=== PATIENT | female | born 1975 | race Caucasian/White ===

== ENCOUNTER 2017-04-16 21:03 | Inpatient (IN) | payer OTHER, BC ==
[~2017-04-16] VITALS: Ht 167.6 cm; Wt 55.9 kg
[2017-04-16] MEDS ORDERED: TOPROL XL100 MG PO (21:14)
[2017-04-16] MEDS ORDERED: PRILOSEC OTC20 MG PO (21:16)
[2017-04-16] MEDS ORDERED: HYDROXYZINE HYD50 M1 PO (21:16)
[2017-04-16] MEDS ORDERED: HYDROCHLOROTHIA1 T14 PO (21:17)
[2017-04-16 21:48] LABS: HEMATOCRIT 49.9 % (37.0-47.0); HEMOGLOBIN 16.6 g/dL (12.5-16.0); RED BLOOD COUNT 4.61 M/mm3 (4.10-5.30); WHITE BLOOD COUNT 15.5 K/mm3 (4.8-10.8)
[2017-04-16 21:49] LABS: MEAN CELL VOLUME 108 fl (78-100); MEAN CORPUSCULAR HGB CONC 33 g/dL (33-37); MEAN PLATELET VOLUME 10.1 fl (7.4-10.4); PLATELET COUNT 237 K/mm3 (130-400); RED CELL DISTRIBUTION WIDTH 15.7 % (11.5-14.5)
[2017-04-16 22:00] LABS: ALBUMIN 5.4 g/dL (3.5-5.0); BUN/CREATININE RATIO 7.4 (6.0-26.0); CALCIUM 9.7 mg/dL (8.4-10.2); POTASSIUM 4.4 mmol/L (3.6-5.0); TOTAL BILIRUBIN 3.8 mg/dL (0.2-1.3)
[2017-04-16 22:09] LABS: MEAN CORPUSCULAR HEMOGLOBIN 36 pg (27-31)
[2017-04-16 22:10] LABS: LYMPHOCYTE 6 % (20-51); MONOCYTE 6 % (3-10); NEUTROPHILS 88 % (42-75)
[2017-04-16 22:48] LABS: LIPASE 3515 U/L (23-300)
[2017-04-17 00:36] VITALS: BP 138/103
[2017-04-17 00:37] VITALS: BP 138/103
[2017-04-17 02:50] VITALS: BP 142/105
[2017-04-17 04:56] VITALS: BP 118/93
[2017-04-17 05:21] LABS: HEMATOCRIT 42.2 % (37.0-47.0); HEMOGLOBIN 14.9 g/dL (12.5-16.0); MEAN CELL VOLUME 106 fl (78-100); MEAN CORPUSCULAR HGB CONC 35 g/dL (33-37); MEAN PLATELET VOLUME 10.5 fl (7.4-10.4); PLATELET COUNT 174 K/mm3 (130-400); RED BLOOD COUNT 3.99 M/mm3 (4.10-5.30); RED CELL DISTRIBUTION WIDTH 15.5 % (11.5-14.5); WHITE BLOOD COUNT 8.6 K/mm3 (4.8-10.8)
[2017-04-17 05:33] LABS: BUN/CREATININE RATIO 15.6 (6.0-26.0); CALCIUM 8.5 mg/dL (8.4-10.2); POTASSIUM 4.8 mmol/L (3.6-5.0); TOTAL BILIRUBIN 4.9 mg/dL (0.2-1.3); TOTAL PROTEIN 6.7 g/dL (6.3-8.2)
[2017-04-17 05:48] LABS: MEAN CORPUSCULAR HEMOGLOBIN 37 pg (27-31)
[2017-04-17 05:50] LABS: BAND 0 % (0-10); LYMPHOCYTE 14 % (20-51); MONOCYTE 2 % (3-10); NEUTROPHILS 84 % (42-75)
[2017-04-17 05:55] LABS: LIPASE 5309 U/L (23-300)
[2017-04-17 05:56] LABS: PROTHROMBIN TIME 10.2 SECONDS (9.0-12.0)
[2017-04-17 06:24] LABS: URINE APPEARANCE CLEAR; URINE COLOR AMBER
[2017-04-17 06:25] LABS: URINE BILIRUBIN 1+ (NEGATIVE); URINE BLOOD TRACE (NEGATIVE); URINE GLUCOSE NEGATIVE (NEGATIVE); URINE KETONE 3+ (NEGATIVE); URINE LEUKOCYTE ESTERASE NEGATIVE (NEGATIVE); URINE NITRATE NEGATIVE (NEGATIVE); URINE PROTEIN(semi-quant) TRACE mg/dL (NEGATIVE); URINE UROBILINOGEN NORMAL (NORMAL); URINE WBC 0-1 /hpf (0-3)
[2017-04-17 09:05] VITALS: BP 140/94
== END 2017-04-17 09:44 | disposition short-term general hospital (02) | DRG 439 ==
LOC: ED 21:03 → MED/SURG 23:51
PROVIDERS: ADMIT Nurse Practitioner Primary Care
DX: K85.20 Alcohol induced acute pancreatitis without necrosis or infection (principal); F10.239 Alcohol dependence with withdrawal, unspecified; E87.2 Acidosis; E86.0 Dehydration; E83.42 Hypomagnesemia
CPT/HCPCS: J0692; J1630; J1885; J2060; J2270; J2405; J2550; J3475; J3490; J7030; Q9967

== ENCOUNTER → 2017-05-15 | Outpatient (CLI) | payer OTHER, BC ==
[2017-04-17 09:05] VITALS: BP 140/94
[~2017-05-15] MED LIST: HYDROCHLOROTHIA1 T14 PO; HYDROXYZINE HYD50 M1 PO; PRILOSEC OTC20 MG PO; TOPROL XL100 MG PO
[2017-05-15 15:19] LABS: HEMATOCRIT 37.2 % (37.0-47.0); HEMOGLOBIN 12.1 g/dL (12.5-16.0); MEAN CELL VOLUME 100 fl (78-100); MEAN CORPUSCULAR HEMOGLOBIN 33 pg (27-31); MEAN CORPUSCULAR HGB CONC 33 g/dL (33-37); MEAN PLATELET VOLUME 10.3 fl (7.4-10.4); RED BLOOD COUNT 3.71 M/mm3 (4.10-5.30); RED CELL DISTRIBUTION WIDTH 14.1 % (11.5-14.5); WHITE BLOOD COUNT 8.9 K/mm3 (4.8-10.8)
[2017-05-15 15:40] LABS: ALBUMIN 3.3 g/dL (3.5-5.0); BUN/CREATININE RATIO 11.5 (6.0-26.0); CALCIUM 8.5 mg/dL (8.4-10.2); POTASSIUM 3.4 mmol/L (3.6-5.0); TOTAL BILIRUBIN 0.4 mg/dL (0.2-1.3); TOTAL PROTEIN 6.5 g/dL (6.3-8.2)
[2017-05-15 16:25] LABS: PLATELET COUNT 551 K/mm3 (130-400)
[2017-05-15 20:32] LABS: LYMPH# 2.6 (1.50-4.00); MONO # 0.8 (0.20-0.80); NEU # 4.9 (1.40-6.50)
[2017-05-15 20:34] LABS: EOS # 0.7 (0.04-0.40)
== END ==
LOC: LAB 14:56
PROVIDERS: Nurse Practitioner Family
DX: Z87.19 Personal history of other diseases of the digestive system (principal); K76.0 Fatty (change of) liver, not elsewhere classified; F10.20 Alcohol dependence, uncomplicated; I10 Essential (primary) hypertension

== ENCOUNTER → 2017-06-01 | Outpatient (CLI) | payer OTHER, BC ==
[2017-06-01 14:12] LABS: BUN/CREATININE RATIO 10.6 (6.0-26.0); CALCIUM 8.4 mg/dL (8.4-10.2); POTASSIUM 3.5 mmol/L (3.6-5.0)
== END ==
LOC: LAB 13:45
PROVIDERS: Nurse Practitioner Family
DX: E87.6 Hypokalemia (principal)

== ENCOUNTER → 2017-06-05 | Outpatient (CLI) | payer OTHER, BC | LOC: LAB 16:15 | DX: R73.9 Hyperglycemia, unspecified (principal) ==

== ENCOUNTER → 2019-08-29 | Outpatient (CLI) | payer BC ==
[2019-08-29 09:45] LABS: POTASSIUM 3.9 mmol/L (3.5-5.1)
[2019-08-29 09:46] LABS: CALCIUM 8.8 mg/dL (8.3-10.5)
[2019-08-29 09:47] LABS: TOTAL PROTEIN 6.7 g/dL (6.4-8.3)
[2019-08-29 09:49] LABS: TOTAL BILIRUBIN 0.6 mg/dL (0.2-1.2)
[2019-08-29 09:50] LABS: BASO # 0.1 (0.02-0.10); EOS % 4.4 % (1.0-5.0); HEMOGLOBIN 14.3 g/dL (12.5-16.0); MEAN CELL VOLUME 88 fl (78-100); MEAN CORPUSCULAR HEMOGLOBIN 30 pg (27-31); MEAN CORPUSCULAR HGB CONC 34 g/dL (33-37); MONO # 1.2 (0.20-0.80); NEU # 8.6 (1.40-6.50); PLATELET COUNT 423 K/mm3 (130-400); RED BLOOD COUNT 4.78 M/mm3 (4.10-5.30); WHITE BLOOD COUNT 15.4 K/mm3 (4.8-10.8)
[2019-08-29 10:20] LABS: EOS # 0.7 (0.04-0.40); LYMPH# 4.8 (1.50-4.00)
== END ==
LOC: LAB 09:18
PROVIDERS: Physician Assistant
DX: Z00.00 Encounter for general adult medical examination without abnormal findings (principal); Z12.39 Encounter for other screening for malignant neoplasm of breast; Z13.29 Encounter for screening for other suspected endocrine disorder; K76.0 Fatty (change of) liver, not elsewhere classified; F41.1 Generalized anxiety disorder; I10 Essential (primary) hypertension; L30.9 Dermatitis, unspecified; K20.0 Eosinophilic esophagitis; Z87.19 Personal history of other diseases of the digestive system; Z83.49 Family history of other endocrine, nutritional and metabolic diseases

== ENCOUNTER → 2019-09-30 | Outpatient (CLI) | payer BC | LOC: MAMMO 10:45 | DX: Z12.31 Encounter for screening mammogram for malignant neoplasm of breast (principal) ==

== ENCOUNTER 2020-09-18 03:02 | Emergency (ER) | payer BC ==
[2020-09-18] MEDS ORDERED: ZESTORETIC 10-1 EACH PO (03:25)
[2020-09-18] MEDS ORDERED: METOPROLOL SUC100 M1 PO (03:25)
[2020-09-18] MEDS ORDERED: PRILOSEC 20MG20 MG PO (03:26)
[2020-09-18] MEDS ORDERED: CELEXA 20MG20 MG/TA1 PO (03:26)
[2020-09-18] MEDS ORDERED: WELLBUTRIN 75MG75 MG PO (03:27)
[2020-09-18] MEDS ORDERED: WELLBUTRIN (03:27)
[2020-09-18 04:08] LABS: BASO # 0.04 (0.02-0.10); EOS # 0.32 (0.04-0.40); HEMATOCRIT 37.6 % (37.0-47.0); HEMOGLOBIN 13.3 g/dL (12.5-16.0); LYMPH# 2.58 (1.50-4.00); MEAN CELL VOLUME 85 fl (78-100); MEAN CORPUSCULAR HEMOGLOBIN 30 pg (27-31); MEAN CORPUSCULAR HGB CONC 35 g/dL (33-37); MEAN PLATELET VOLUME 10.9 fl (7.4-10.4); MONO # 0.84 (0.20-0.80); NEU # 4.11 (1.40-6.50); PLATELET COUNT 313 K/mm3 (130-400); RED BLOOD COUNT 4.41 M/mm3 (4.10-5.30); RED CELL DISTRIBUTION WIDTH 12.1 % (11.5-14.5); WHITE BLOOD COUNT 7.9 K/mm3 (4.8-10.8)
[2020-09-18 04:22] LABS: ALBUMIN 3.8 g/dL (3.5-5.0); POTASSIUM 3.4 mmol/L (3.5-5.1); SODIUM 138 mmol/L (136-145)
[2020-09-18 04:24] LABS: CALCIUM 8.3 mg/dL (8.3-10.5)
[2020-09-18 04:25] LABS: GLUCOSE 105 mg/dL (65-105); TOTAL PROTEIN 6.3 g/dL (6.4-8.3)
[2020-09-18 04:26] LABS: CARBON DIOXIDE 19 mmol/L (22-29)
[2020-09-18 04:27] LABS: TOTAL BILIRUBIN 0.3 mg/dL (0.2-1.2)
[2020-09-18 04:30] LABS: AST-SGOT 12 U/L (5-34)
[2020-09-18 04:31] LABS: ALT/SGPT 7 U/L (0-55)
[2020-09-18 04:47] LABS: TROPONIN-I < 0.03 ng/mL (<0.030)
[2020-09-18 06:12] VITALS: BP 111/70
== END 2020-09-18 06:13 | disposition home or self-care (01) ==
LOC: ED 03:02
PROVIDERS: Family Medicine
DX: K21.9 Gastro-esophageal reflux disease without esophagitis (principal); F41.9 Anxiety disorder, unspecified; Z90.49 Acquired absence of other specified parts of digestive tract; Z87.891 Personal history of nicotine dependence; Z79.899 Other long term (current) drug therapy

== ENCOUNTER → 2020-09-29 | Outpatient (CLI) | payer BC ==
[~2020-09-29] MED LIST changes: +CELEXA 20MG20 MG/TA1 PO; +METOPROLOL SUC100 M1 PO; +PRILOSEC 20MG20 MG PO; +WELLBUTRIN; +WELLBUTRIN 75MG75 MG PO; +ZESTORETIC 10-1 EACH PO
[2020-09-29 09:58] LABS: BASO # 0.04 (0.02-0.10); EOS # 0.25 (0.04-0.40); EOS % 2.8 % (1.0-5.0); HEMATOCRIT 39.6 % (37.0-47.0); HEMOGLOBIN 13.8 g/dL (12.5-16.0); LYMPH# 2.85 (1.50-4.00); MEAN CELL VOLUME 85 fl (78-100); MEAN CORPUSCULAR HEMOGLOBIN 30 pg (27-31); MEAN CORPUSCULAR HGB CONC 35 g/dL (33-37); MEAN PLATELET VOLUME 10.6 fl (7.4-10.4); MONO # 0.79 (0.20-0.80); NEU # 4.91 (1.40-6.50); PLATELET COUNT 338 K/mm3 (130-400); RED BLOOD COUNT 4.65 M/mm3 (4.10-5.30); RED CELL DISTRIBUTION WIDTH 12.2 % (11.5-14.5); WHITE BLOOD COUNT 8.9 K/mm3 (4.8-10.8)
[2020-09-29 10:09] LABS: POTASSIUM 3.7 mmol/L (3.5-5.1)
[2020-09-29 10:11] LABS: CALCIUM 8.6 mg/dL (8.3-10.5)
[2020-09-29 10:12] LABS: TOTAL PROTEIN 6.9 g/dL (6.4-8.3)
[2020-09-29 10:14] LABS: TOTAL BILIRUBIN 1.1 mg/dL (0.2-1.2)
== END ==
LOC: LAB 09:33
PROVIDERS: Physician Assistant
DX: I10 Essential (primary) hypertension (principal); E78.5 Hyperlipidemia, unspecified; Z83.49 Family history of other endocrine, nutritional and metabolic diseases

== ENCOUNTER → 2021-02-14 | Outpatient (CLI) | payer BC | LOC: LAB 13:45 | DX: Z20.822 Contact with and (suspected) exposure to COVID-19 (principal) ==

== ENCOUNTER → 2021-11-25 | Outpatient (CLI) | payer BC ==
[2021-11-25 10:45] LABS: BASO # 0.03 K/mm3 (0.02-0.10); EOS # 0.38 K/mm3 (0.04-0.40); EOS % 4.9 % (1.0-5.0); HEMATOCRIT 40.1 % (37.0-47.0); HEMOGLOBIN 13.4 g/dL (12.5-16.0); LYMPH# 1.58 K/mm3 (1.50-4.00); MEAN CELL VOLUME 89 fl (78-100); MEAN CORPUSCULAR HEMOGLOBIN 30 pg (27-31); MEAN CORPUSCULAR HGB CONC 33 g/dL (33-37); MEAN PLATELET VOLUME 10.4 fl (7.4-10.4); MONO # 0.74 K/mm3 (0.20-0.80); NEU # 5.06 K/mm3 (1.40-6.50); PLATELET COUNT 290 K/mm3 (130-400); RED CELL DISTRIBUTION WIDTH 12.6 % (11.5-14.5); WHITE BLOOD COUNT 7.8 K/mm3 (4.8-10.8)
[2021-11-25 10:49] LABS: ALBUMIN 3.8 g/dL (3.5-5.0); POTASSIUM 3.9 mmol/L (3.5-5.1)
[2021-11-25 10:50] LABS: CALCIUM 8.5 mg/dL (8.3-10.5)
[2021-11-25 10:51] LABS: TOTAL PROTEIN 6.6 g/dL (6.4-8.3)
[2021-11-25 11:18] LABS: TOTAL BILIRUBIN 0.4 mg/dL (0.2-1.2)
[2021-11-26 07:47] LABS: T3 TOTAL 81 ng/dL (35-193)
== END ==
LOC: LAB 09:44
PROVIDERS: Physician Assistant
DX: Z00.00 Encounter for general adult medical examination without abnormal findings (principal); Z12.39 Encounter for other screening for malignant neoplasm of breast; K21.9 Gastro-esophageal reflux disease without esophagitis; K44.9 Diaphragmatic hernia without obstruction or gangrene; K76.0 Fatty (change of) liver, not elsewhere classified; I10 Essential (primary) hypertension; F41.1 Generalized anxiety disorder; F44.9 Dissociative and conversion disorder, unspecified; L40.9 Psoriasis, unspecified; E78.5 Hyperlipidemia, unspecified; G43.009 Migraine without aura, not intractable, without status migrainosus; Z83.49 Family history of other endocrine, nutritional and metabolic diseases; K90.9 Intestinal malabsorption, unspecified; B35.1 Tinea unguium

== ENCOUNTER → 2023-03-27 | Outpatient (CLI) | payer BC | LOC: MAMMO 14:26 | DX: Z12.31 Encounter for screening mammogram for malignant neoplasm of breast (principal) ==